=== PATIENT | male | born 1990 | race Caucasian/White ===

== ENCOUNTER 2016-12-29 01:09 | Emergency (ER) | payer BC ==
[~2016-12-29 01:09] MED LIST: TYLENOL #31 TA1 PO
[2016-12-29] MEDS ORDERED: IBUPROFEN800 M1 PO (01:36)
[2016-12-29] MEDS ORDERED: KETOROLAC TROME10 MG PO ×2 (02:23→02:30)
[2017-07-07] MEDS ORDERED: NO HOME MEDS (20:11)
[2017-07-08] MEDS ORDERED: XARELTO1 EACH PO (12:31)
[2017-07-08] MEDS ORDERED: NORCO 5-325 TA1 EACH PO (12:32)
== END 2016-12-29 02:45 ==
LOC: EDMED 01:09
DX: S93.402A Sprain of unspecified ligament of left ankle, initial encounter (principal); S93.602A Unspecified sprain of left foot, initial encounter; F17.210 Nicotine dependence, cigarettes, uncomplicated; X50.1XXA Overexertion from prolonged static or awkward postures, initial encounter; Y92.019 Unspecified place in single-family (private) house as the place of occurrence of the external cause; Z98.890 Other specified postprocedural states